=== PATIENT | female | born 1990 | race Caucasian/White ===

== ENCOUNTER 2018-04-19 09:54 | Outpatient (REF) | payer BC, SELFPAY ==
--- NOTE | 2018-04-19 09:00 | PAPFT_PTH ---
PAT[facility]: Karely Griffin [id number] AGE/SX: 27/F ROOM: RE04/19/[address]: Conchis Mckeon : 1990 BED: DIS: 04/19/2018 SPEC #: [id number] RECD: 04/20/18 12:55 STATUS: VANESSA REQ #: [id number] ROB: 04/19/18 09:[address]: Conchis Mckeon DEPT: [facility] Cytology RECD BY: Divya Sheets ENTERED: 04/20/18 12:55 SP TYPE: PAPFT OT DR: Unknown,Unknown Tissues: 1 - CX/ENDOCX FOR PAP SMEARS Procedures: PAP THIN PREP/[facility] Screening Comments: [id number]
== END 2018-04-19 10:14 ==
LOC: NCHCN 09:54
PROVIDERS: Visit Provider Family Medicine
DX: Z12.4 Encounter for screening for malignant neoplasm of cervix (principal)
CPT/HCPCS: 88142

== ENCOUNTER 2022-02-27 11:50 | Outpatient (REF) | payer BC, SELFPAY ==
--- NOTE | 2022-02-27 11:00 | PAPFT_PTH ---
PATIENT: Karely Griffin LOC: [facility]#:[id number] AGE/SX: 31/F ROOM: RE02/27/[address]: Conchis Mckeon : 1990 BED: DIS: 02/27/2022 SPEC #: [id number] RECD: 02/27/22 17:25 STATUS: VANESSA REQ #: [id number] ROB: 02/27/22 11:[address]: Conchis Mckeon DEPT: [facility] Cytology RECD BY: Divya Sheets ENTERED: 02/27/22 17:25 SP TYPE: PAPFT LUIS ALFREDO DR: Unknown,Unknown Tissues: 1 - CX/ENDOCX FOR PAP SMEARS Procedures: PAP THIN PREP/[facility] Screening HPV DNA PROBE Comments: [id number]
--- OUTSIDE RECORDS SUMMARY | 2022-02-27 11:59 | XMS_ITS ---
:1990 Author Organization [facility] Address [address] [place] [address], [address] [place] [address] Care Team Providers Name Role Phone Radha Muniz Unavailable Unavailable PROBLEMS Type Condition ICD9-CM Code QDM80-RA Code Onset Condition SNO MED Code Dates Status Problem Urinary urgency 788.63 Active 6628 8002 Problem ASCUS R/O HGSIL 795.02 Active 9480 21784 ALLERGIES No Known Allergies ENCOUNTERS Encounter Location Date Diagnosis [facility] [address] [place] [address], [address], [place] [address] [facility] [address] [place] [address], [address] [place], [facility] [address] [place] [address] IMMUNIZATIONS No Known Immunizations SOCIAL HISTORY Never Assessed REASON FOR REFERRAL FUNCTIONAL STATUS PLAN OF CARE VITAL SIGNS Blood pressure systolic 86 2011-05-05 Blood pressure diastolic 50 2011-05-05 MEDICATIONS Medication Instructions Dosage Frequency Start Date End Date Duration S tatus Mirena Active Oxybutynin Active PROCEDURES Procedure Date Ordered Result Body Site Colpo w/ Bx & ECC May 05, 2011 Specimen Handling May 05, 2011 Surgical Tray May 05, 2011 RESULTS Name Result Date Reference Range Pathology 2011-05-05 Result FINAL REASON FOR VISIT colpo results, new COLPO. abnormal pap Insurance Providers [facility] Health Member Patient Patient Patient Patient Patient Subscriber Subscriber Subscriber Group Insurance Plan Plan Plan Plan ID Relationship Address Phone Name Date of ID Name Date of No Type Insurance Insurance Insurance Coverage to Subscriber Address Phone Name Dates [facility] [phone] [facility] Karely [id number] [place] [address] Elias COHEN [id number]
== END 2022-02-27 11:51 | disposition home or self-care (01) ==
LOC: NCHCN 11:50
PROVIDERS: Visit Provider Family Medicine
DX: Z12.4 Encounter for screening for malignant neoplasm of cervix (principal); Z11.51 Encounter for screening for human papillomavirus (HPV)
CPT/HCPCS: 88142; 87624